=== PATIENT | male | born 1970 | race Caucasian/White ===

== ENCOUNTER 2016-07-07 03:37 | Emergency (ER) | payer BC ==
--- NOTE | 2016-07-07 06:04 | ED Physician Documentation ---
PD HPI ABD PAIN - Stated complaint Stated Complaint: ABDOMINAL PAIN - Chief complaint Chief Complaint: Abd Pain - History obtained from History obtained from: Patient - History of Present Illness Timing - onset: Enter time (15:00), Yesterday Timing - details: Gradual onset, Waxing and waning Pain level now: 6 Quality: Cramping, Pain Location: Periumbilical, RLQ, LLQ Radiation: Other (does not radiate) Improved by: Other (no ameliorating factors) Worsened by: Other (no exacerbating factors) Associated symptoms: Nausea. 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 denies: Vomiting, Constipation, Diarrhea : denies: Dysuria, Frequency PD PAST MEDICAL HISTORY - Past Medical History Past Medical History: No - Present Medications Home Medications: Ambulatory Orders Medication Instructions Recorded Confirmed Hydrocodone/Acetaminophen 1 - 2 each PO Q6HR PRN #14 tablet 07/07/16 [Hydrocodon-Acetaminophen 5-325] Ondansetron HCl [Zofran] 4 mg PO Q6HR PRN #14 tablet 07/07/16 - Allergies Allergies/Adverse Reactions: Allergies Allergy/AdvReac Type Severity Reaction Status Date / Time No Known Drug Allergies Allergy Verified 07/07/16 03:45 - Social History Does the pt smoke?: No Smoking Status: Never smoker Does the pt drink ETOH?: No Does the pt have substance abuse?: No - Immunizations Immunizations are current?: Yes - POLST Patient has POLST: No PD ED PE NORMAL - Vitals Vital signs reviewed: Yes - General General: Alert and oriented X 3, No acute distress (NAD initially, but upon completion of physical exam, noted to rapidly become uncomfortable due to painful distress), Well developed/nourished - HEENT HEENT: Moist mucous membranes - Neck Neck: Supple, no meningeal sign - Cardiac Cardiac: RRR, No murmur - Respiratory Respiratory: No respiratory distress, Clear bilaterally - Abdomen Abdomen: Normal bowel sounds, Soft, Non tender, Non distended - Back Back: No CVA TTP Results - Vitals Vitals: Vital Signs - 24 hr 07/07/16 07/07/16 09:52 10:30 Heart Rate 70 74 Respiratory 18 18 Rate Blood Pressure 116/64 113/61 O2 Saturation 100 95 Oxygen O2 Source Room air - Labs Labs: Laboratory Tests 07/07/16 07/07/16 06:25 06:25 WBC 9.1 RBC 5.56 Hgb 17.5 Hct 51.7 MCV 93.1 MCH 31.5 H MCHC 33.9 RDW 13.3 Plt Count 236 MPV 8.3 Neut # 7.4 H Lymph # 1.0 L Thayer # 0.6 Eos # 0.1 Baso # 0.0 Absolute Nucleated RBC 0.00 Nucleated RBCs 0.0 Sodium 141 Potassium 4.2 Chloride 103 Carbon Dioxide 30 Anion Gap 8.0 BUN 15 Creatinine 0.8 Estimated GFR (MDRD) 105 Glucose 112 H Calcium 9.8 Total Bilirubin 1.3 H AST 18 ALT 25 Alkaline Phosphatase 59 Total Protein 8.4 H Albumin 5.4 Globulin 3.0 Albumin/Globulin Ratio 1.8 Lipase 15 L - Rads (name of study) abd. xrays Radiology: Prelim report reviewed, See rad report PD MEDICAL DECISION MAKING - ED course Complexity details: reviewed old records, reviewed results, re-evaluated patient , considered differential, d/w patient ED course: My initial recommendation was for IV fluids, blood tests, and CT A/P. Patient was reluctant to go directly to CT, and expressed a preference for plain-film xrays. He became nauseas when IV was inserted, and thus zofran given IV with good results. Upon test completion, I discussed results with him, as well as the xray findings , which are equivocal (small bowel loops seen, but fluid levels in colon also seen). D/W Dr. Hayes, recommends CT A/P with PO contrast. I then discussed this with patient, and patient refused PO contrast: he says that this caused worsening of symptoms in the past, and he says that a surgeon had once advised patient to not get oral contrast if he is having SBO symptoms. I then revisited an option I had discussed with him earlier, which is discharge home with pain medications with return if worse; I explained that early/partial small bowel obstructions have potential to resolve without more specific intervention (such as surgery, nasogastric tube), and patient says he has been discharged in the past under these circumstances with subsequent resolution at home. He was given 2mg morphine IV for his pain, and requested a second dose prior to discharge, as well as more IV fluids (total of 3 liters IV fluids given). Subsequent to these interventions, patient expressed that he was comfortable going home. Departure - Departure Disposition: , Self Care Clinical Impression: Intestinal obstruction Qualifiers: Intestinal obstruction type: unspecified Qualified Code(s): K56.60 - Unspecified intestinal obstruction Condition: Good Instructions: ED Abdominal Pain Adhesions Prescriptions: Hydrocodone/Acetaminophen [Hydrocodon-Acetaminophen 5-325] 1 - 2 each PO Q6HR PRN #14 tablet PRN Reason: Pain Ondansetron HCl [Zofran] 4 mg PO Q6HR PRN #14 tablet PRN Reason: Nausea / Vomiting Discharge Date/Time: 07/07/16 10:44
[2016-07-07] MEDS ORDERED: ONDANSETRON 4 MG/2 ML VIAL ONE (06:39)
[2016-07-07] MEDS: ONDANSETRON 4 MG/2 ML VIAL IVP STA (06:42)
[2016-07-07] MEDS: SODIUM CHLORIDE 0.9% 1,000 ML IV STA ×3 (06:43→09:51)
[2016-07-07 06:45] LABS: BASOPHILS % (AUTO) 0.2 %; EOSINOPHILS # (AUTO) 0.1 10^3/uL (0.0-0.7); EOSINOPHILS % (AUTO) 1.5 %; HCT - HEMATOCRIT 51.7 % (42.0-52.0); HGB - HEMOGLOBIN 17.5 g/dL (14.0-18.0); LYMPHOCYTES % (AUTO) 10.6 %; MEAN CORPUSCULAR HEMOGLOBIN 31.5 pg (27.0-31.0); MEAN CORPUSCULAR HGB CONC 33.9 g/dL (32.0-36.0); MEAN CORPUSCULAR VOLUME 93.1 fL (80.0-94.0); MEAN PLATELET VOLUME 8.3 fL (7.4-11.4); MONOCYTES # (AUTO) 0.6 10^3/uL (0.0-1.0); MONOCYTES % (AUTO) 6.5 %; NEUTROPHILS # (AUTO) 7.4 10^3/uL (1.5-6.6); NEUTROPHILS % (AUTO) 81.2 %; RED BLOOD COUNT 5.56 10^6/uL (4.70-6.10); RED CELL DISTRIBUTION WIDTH 13.3 % (12.0-15.0); UNCORRECTED WHITE BLOOD COUNT 9.1 x10^3/uL; WHITE BLOOD COUNT 9.1 x10^3/uL (4.8-10.8)
[2016-07-07 06:56] LABS: ALBUMIN/GLOBULIN RATIO 1.8 (1.0-2.2); BILIRUBIN,TOTAL 1.3 mg/dL (0.2-1.0); CALCIUM 9.8 mg/dL (8.5-10.3); CREATININE 0.8 mg/dL (0.6-1.2); POTASSIUM 4.2 mmol/L (3.5-5.0); TOTAL PROTEIN 8.4 g/dL (6.7-8.2)
--- NOTE | 2016-07-07 07:59 | XRAY Report ---
EXAM: ABDOMINAL SERIES AND PA CHEST EXAM DATE: 07/07/2016 07:24 AM. CLINICAL HISTORY: Abd. pain. COMPARISON: None. TECHNIQUE: 2 views abdomen and 1 view chest. FINDINGS: CHEST: Lungs/Pleura: No focal opacities. No effusion or pneumothorax. Mediastinum: Within exam limitations, cardiomediastinal contour is normal. ABDOMEN: Bowel Gas Pattern: There are fluid levels within bowel, primarily colon. There may be some dilated sm all bowel in the right lower quadrant. Free Air: No intraperitoneal free air. Other: None. IMPRESSION: 1. Lungs are clear. Normal heart size. 2. There is mildly dilated small bowel within the right lower quadrant. There are intra-abdominal flu id levels which are primarily within colon. 3. No evidence of intraperitoneal free air. [facility] Referring Provider Line: [phone] SITE ID: [id number]
[2016-07-07] MEDS ORDERED: MORPHINE 2 MG/ML SYRINGE ONE ×2 (08:52→09:48)
[2016-07-07] MEDS: MORPHINE 2 MG/ML SYRINGE IVP STA ×2 (08:54→09:51)
[2016-07-07 10:32] VITALS: BP 113/61
== END 2016-07-07 10:44 | disposition home or self-care (01) ==
LOC: ED 03:37
DX: K56.60 Unspecified intestinal obstruction (principal)
CPT/HCPCS: 36415; 74022; 80053; 83690; 85025; 96361; 96374; 96375; 96376; 99283; 99284

== ENCOUNTER 2020-12-19 15:47 | Outpatient (CLI) | payer OTHER | END 2020-12-19 15:48 | disposition home or self-care (01) | LOC: COV 15:47 | PROVIDERS: ATTEND Family Medicine | DX: R50.9 Fever, unspecified (principal); Z20.822 Contact with and (suspected) exposure to COVID-19 ==